=== PATIENT | female | born 1940 | race American Indian/Alaskan Native ===

== ENCOUNTER 2017-07-23 08:27 | Day surgery (SDC) | payer MEDICARE, MEDICAID ==
[2017-07-20 07:53] VITALS: BMI 19.4
[2017-07-23] MEDS ORDERED: Lidocaine 2% Inj (20ml) ONE (09:02)
[2017-07-23] MEDS ORDERED: Phenylephrine 10 mg/ml Inj ONE (09:02)
[2017-07-23] MEDS ORDERED: Midazolam 2 MG/2 ML VIAL ONE (09:03)
[2017-07-23] MEDS ORDERED: Iodixanol 320 MG/ML 200 ML BOTTLE IV ONE (09:04)
[2017-07-23] MEDS ORDERED: Iohexol 350mgl/ml 50 ML ONE (09:04)
[2017-07-23] MEDS ORDERED: Nitroglycerin 50mg in D5W 0 MG/0 ML BOTTLE IV ONE (09:04)
[2017-07-23 09:17] VITALS: RESP 18; TEMP 97.3
[2017-07-23 09:27] LABS: BASO # 0.03 K/mm3 (0.0-2.0); BASO % 0.5 % (0.0-3.0); EOS # 0.3 (0.0-0.7); EOS % 5.1 % (1.5-5.0); GRAN # 4.3 (1.4-6.5); GRAN % 64.7 % (50.0-68.0); HEMATOCRIT 38.6 % (36.0-48.0); LYMPH # 1.5 (1.2-3.4); LYMPH % 22.6 % (22.0-35.0); MEAN CORPUSCULAR HEMOGLOBIN 29.2 pg (25.0-35.0); MEAN CORPUSCULAR HGB CONC 32.1 g/dl (31.0-37.0); MEAN PLATELET VOLUME 9.8 fl (7.0-11.0); MONO # 0.5 (0.1-0.6); MONO % 7.1 % (1.0-6.0); RED CELL DISTRIBUTION WIDTH 13.8 % (11.5-14.5); WHITE BLOOD COUNT 6.6 10^3/ul (4.5-11.0)
[2017-07-23 09:42] LABS: BLOOD UREA NITROGEN 21 mg/dL (7-21); CALCIUM 9.5 mg/dL (8.4-10.5); CARBON DIOXIDE 33 mmol/L (21-33); CHLORIDE 101 mmol/L (98-107); CHOLESTEROL 163 mg/dL (130-200); GFR AFRICAN-AMERICAN > 60; GLUCOSE,RANDOM 94 mg/dL (70-110); POTASSIUM 4.3 mmol/L (3.6-5.0); SODIUM 139 mmol/L (132-148)
[2017-07-23 09:47] LABS: INR 1.04 (0.93-1.08); PARTIAL THROMBOPLASTIN TIME 31.7 Seconds (25.1-36.5)
[2017-07-23] MEDS ORDERED: Sodium Chloride 0.45% 1,000 ML IV SCH (10:45)
[2017-07-23 16:09] VITALS: BP 123/70; PULSE 68; O2SAT 96
--- NOTE | 2017-07-23 23:09 | CARD ---
APPROVED REPORT EKG Measurement Heart [id number] <Conclusion> Normal sinus rhythm with sinus arrhythmia Left axis deviation Left bundle branch block Abnormal ECG
--- NOTE | 2017-08-06 11:55 | CARD ---
APPROVED REPORT Procedure(s) performed: Left Heart Catheterization Complete Heart Catheterization Left Ventriculogram HISTORY 60%. (EF Method: RADIONUCLIDE), previous CVA , peripheral vascular disease, chronic lung disease, hypertension , dyslipidemia , cerebrovascular disease . CASE TECHNIQUE The patient was brought electively to the Cardiac Catheterization Laboratory in a fasting state and was prepped and draped in a sterile manner. The right femoral groin was infiltrated with 2% Lidocaine subcutaneous anesthesia. A 5 Fr x 11 cm Marni sheath was inserted using coronary diagnostic catheters. The left coronary system was accessed and visualized with a Diagnostic catheter. The right coronary system was accessed and visualized with a Diagnostic catheter. The left ventricle was accessed and visualized with a Diagnostic catheter. Left ventricular/Aortic Valve gradient assessed on pullback. Left ventriculogram was performed in RICHARD projection. Hemostasis was obtained with manual pressure following sheath removal without any complications. Vessel Analysis The patient's coronary anatomy is co-dominant. The left main coronary artery is a medium size vessel with intimal irregularities. The left main bifurcates to the left anterior descending and circumflex. The left anterior descending artery is a medium size vessel . There is a 50% stenosis in the mid segment. Enodcardial course The first diagonal branch is a small size vessel . There is a 50% stenosis . The circumflex artery is a medium size vessel with intimal irregularities. The right coronary artery is a small size vessel . There is a 50% stenosis in the distal segment. Left Ventricle The left ventricle is normal in size with hyperdynamic contractility. The left ventricular ejection fraction is estimated to be 80%. Conclusion Endocardial course of LAD. Small vessel CAD. Hyperdynamic left ventricular function. Recommendations Aggressive Medical TherapyCardiac Risk Reduction Program Medical Therapy
== END 2017-07-23 13:25 | disposition home or self-care (01) ==
LOC: CATH 08:27
PROVIDERS: ATTEND Internal Medicine Cardiovascular Disease
DX: I25.118 Atherosclerotic heart disease of native coronary artery with other forms of angina pectoris (principal); I10 Essential (primary) hypertension; E78.5 Hyperlipidemia, unspecified; I73.9 Peripheral vascular disease, unspecified; Z86.73 Personal history of transient ischemic attack (TIA), and cerebral infarction without residual deficits
CPT/HCPCS: 36415; 80048; 80061; 85025; 85610; 85730; 86850; 86900; 93005; 93458; 99152; C1713; C1769; C1887 ×2; J1644; J2250; J3010; J7030; J7040